=== PATIENT | male | born 1995 | race Caucasian/White ===

== ENCOUNTER 2021-04-15 17:24 | Emergency (ER) | payer OTHER ==
[~2021-04-15] VITALS: Ht 170.2 cm; Wt 64.9 kg
[2021-04-15] MEDS ORDERED: LITHIUM CARBON300 MG (17:47)
[2021-04-15] MEDS ORDERED: CLEOCIN HCL300 MG PO (20:12)
== END 2021-04-15 20:38 | disposition home or self-care (01) ==
LOC: ER 17:24
DX: K05.10 Chronic gingivitis, plaque induced (principal)